=== PATIENT | female | born 1985 | race Caucasian/White ===

== ENCOUNTER 2020-03-27 06:13 | Emergency (ER) | payer SELFPAY ==
[2020-03-27 06:22] VITALS: BP 134/91; PULSE 100; RESP 18; TEMP 36.9; O2SAT 99; BMI 25.7
[2020-03-27 07:26] VITALS: BP 133/60; PULSE 93; RESP 16; O2SAT 97
[2020-03-27 07:42] LABS: Add Urine Microscopic? NO
[2020-03-27 07:43] LABS: Basophils # 0.1 10^3/uL (0.0-0.1); Basophils % 0.6 %; Eosinophils # 0.3 10^3/uL (0.0-0.8); Eosinophils % 2.9 %; Hematocrit 41.4 % (37.0-47.0); Hemoglobin 13.7 g/dL (11.5-15.3); Lymphocytes # 3.1 10^3/uL (0.8-4.8); Lymphocytes % 35.1 %; Mean Corpuscular HGB Conc 33.1 g/dL (30.0-36.0); Mean Corpuscular Hemoglobin 28.5 pg (28.0-34.0); Mean Corpuscular Volume 86.3 fL (81-99); Mean Platelet Volume 9.4 fL (7.4-10.4); Monocytes # 0.7 10^3/uL (0.2-0.9); Monocytes % 7.9 %; Neutrophils # 4.65 10^3/uL (1.8-7.7); Neutrophils % 53.4 %; Nucleated Red Blood Cells % 0 %; Platelet Count 287 10^3/cmm (130-400); White Blood Count 8.7 10^3/uL (4.0-10.0)
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
[2020-03-27 07:47] LABS: Bilirubin Urine Neg (Negative); Blood Urine Neg (Negative); Glucose Urine UA Norm (Normal); Ketones Urine Negative (Negative); Leukocyte Esterase Urine Negative (Negative); Nitrate Urine Negative (Negative); Protein Urine Neg (Negative); Urine Appearance Clear (CLEAR); Urine Color Yellow (Yellow); Urobilinogen Urine Norm (Negative); pH Urine 7 (5-7)
[2020-03-27 07:48] LABS: HCG Qualitative Urine. Negative (Negative)
[2020-03-27 07:57] LABS: Alanine Aminotransferase 23 U/L (0-33); Albumin Level 4.2 g/dL (3.5-5.2); Alkaline Phosphatase 75 IU/L (35-105); Anion Gap 13.2 (5-19); Aspartate Amino Transferase 21 U/L (0-32); Blood Urea Nitrogen 8 mg/dL (6-20); Calcium 9.4 mg/dL (8.5-10.5); Carbon Dioxide 25 mmol/L (22-29); Chloride 100 mmol/L (98-107); Creatinine Clr Calc Pharmacy 186.0478; Globulin 3.4 g/dL (1.3-4.6); Glomerular Filtration Rate 181.6 mL/min (90-130); Glucose 88 mg/dL (65-115); Osmolality Calculated 278 mOsm/kg (285-295); Potassium 3.2 mmol/L (3.5-5.1); Sodium 135 mmol/L (136-145); Total Bilirubin 0.4 mg/dL (0.15-1.2); Total Protein 7.6 g/dL (6.6-8.7)
[2020-03-27 08:00] LABS: Acetaminophen < 5.0 ug/mL (10-30); Salicylate < 0.3 mg/dL (3-10)
[2020-03-27 09:02] VITALS: BP 116/75; PULSE 90; RESP 16; O2SAT 94
[2020-03-27 09:14] VITALS: BP 118/75; PULSE 99; O2SAT 98
== END 2020-03-27 09:20 | disposition home or self-care (01) ==
PROVIDERS: Emergency Provider Family Medicine; PCP Family Medicine
DX: F32.9 Major depressive disorder, single episode, unspecified (principal)
CPT/HCPCS: 80053; 80307; 81003; 81025; 85025; 99283

== ENCOUNTER 2023-10-01 04:29 | Emergency (ER) | payer OTHER, SELFPAY ==
[2023-10-01 04:45] VITALS: BP 136/85; PULSE 99; RESP 18; TEMP 37.1; O2SAT 99; BMI 25.7
--- NOTE | 2023-10-01 04:50 | XRR_ITS ---
PROCEDURE INFORMATION: Exam: XR Chest Exam date and time: 10/01/2023 4:55 AM Age: 38 years old Clinical indication: Shortness of breath; Patient HX: C/O SOB TECHNIQUE: Imaging protocol: Radiologic exam of the chest. Views: 1 view. COMPARISON: CR XR chest 1V [id number] 01/17/2019 6:06 AM FINDINGS: Lungs: Unremarkable. No consolidation. Pleural spaces: Unremarkable. No pleural effusion. No pneumothorax. Heart/Mediastinum: Unremarkable. No cardiomegaly. Bones/joints: Unremarkable. XR/XR chest 1V portable [id number] IMPRESSION: No acute findings.
--- NOTE | 2023-10-01 04:51 | ECG_ITS ---
[facility] Test Date: 2023-10-01 Pat Name: Erendira Lindo Department: Room: Gender: Female [employer] Driver: : [id number] Requested By: Jeimy Jones Order Number: [id number] Trip MD: DANISH SANCHEZ Measurements Intervals [place] Rate: 96 P: 60 HI: 132 QRS: 32 QRSD: 114 T: 44 QT: 367 QTc: 465 Interpretive Statements SINUS RHYTHM INCOMPLETE RIGHT BUNDLE BRANCH BLOCK [90+ ms QRS DURATION, TERMINAL R IN V1/V2, 40+ ms S IN I/aVL/V4/V5/V6] Compared to ECG 01/17/2019 06:18:09 No significant changes Electronically Signed On 10-01-2023 20:23:17 CDT by DANISH SANCHEZ [id number] f
[2023-10-01 05:00] VITALS: BP 136/85; PULSE 102; RESP 16; O2SAT 97
--- NOTE | 2023-10-01 05:03 | ED_ITS ---
Documented by User: Jeimy Maza MD 10/01/23 05:18 HPI - SOB/Dyspnea 2 General: Chief Complaint: Shortness of Breath/Dyspnea Stated Complaint: SOB Time Seen by Provider: 10/01/23 04:32 History of Present Illness: HPI Narrative: 38-year-old female who presents emergenc y room with shortness of breath. She says she was exposed to COVID 4 days ago and since then she has had dizziness. She has been lightheaded. She is felt short of breath. She has had some cough. She has had nausea and vomiting and diarrhea. No known fevers. No abdominal pain. No chest pain. Related Data Previous Rx's Medication Instructions Recorded amoxicillin 875 mg tablet 875 mg PO BID 10 days #20 tabs 11/10/20 Allergies Allergy/AdvReac Type Severity Reaction Status Date / Time Iodinated Contrast Media Allergy ALGY-Swell Verified 11/10/20 16:09 Lip/Tongue/Throat Sulfa (Sulfonamide Allergy ADR-Swelling Verified 11/10/20 16:09 Antibiotics) of the Eye Review of Systems 2 Narrative: Constitutional symptoms: Negative except as documented in HPI. Skin symptoms: Negative except as documented in HPI. Eye symptoms: Negative except as documented in HPI. ENMT symptoms: Negative except as documented in HPI. Respiratory symptoms: Negative except as documented in HPI. Cardiovascular symptoms: Negative except as documented in HPI. Gastrointestinal symptoms: Negative except as documented in HPI. Genitourinary symptoms: Negative except as documented in HPI. Musculoskeletal symptoms: Negative except as documented in HPI. Neurologic symptoms: Negative except as documented in HPI. Psychiatric symptoms: Negative except as documented in HPI. Endocrine symptoms: Negative except as documented in HPI. [facility] PFSH: Medical History (Updated 10/01/23 @ 06:08 by Rajat Brothers MD) Depression Social History Smoking and tobacco/nicotine status: current every day tobacco/nicotine user Physical Exam 2 Narrative: EXAM NARRATIVE: General: Alert, no acute distress. Skin: Warm, dry. Head: Normocephalic, atraumatic. Neck: Supple, trachea midline. Eye: Extraocular movements are intact. Ears, nose, mouth and throat: mucosa moist. Cardiovascular: Regular, Normal peripheral perfusion. Respiratory: Lungs are clear to auscultation, respirations are non-labored, breath sounds are equal, Symmetrical chest wall expansion. Gastrointestinal: Soft, Nontender, Non distended Musculoskeletal: Normal ROM, no deformity. Neurological: Alert and oriented, No focal neurological deficit observed. Psychiatric: Cooperative, appropriate mood & affect. Course 2 Vital Signs: Vital signs: Vital Signs Temperature 98.8 F 10/01/23 04:45 Pulse Rate 102 H 10/01/23 05:00 Respiratory Rate 16 10/01/23 05:00 Blood Pressure 136/85 10/01/23 05:00 Pulse Oximetry 97 10/01/23 05:00 Oxygen Delivery Me thod Room Air 10/01/23 05:00 MDM - SOB/Dyspnea Medical Decision Making Differential diagnosis for patient with shortness of breath includes but is not limited to and based on the above HPI, review of systems and physical exam: Pneumonia. Bronchitis. Asthma or COPD with acute exacerbation. Acute coronary syndrome / CA. Pulmonary embolism. Anxiety. Congestive heart failure. Viral infections including influenza and Covid-19. Atrial fibrillation. Anxiety. Pleural effusion. Pneumothorax. Workup: Lab work, chest X-ray and EKG ordered to evaluate, rule in and rule out above pathologies Chest x-ray: No acute process. No infiltrate. No pneumothorax. This was reviewed and interpreted by myself the ER physician. EKG: Time 4:51 AM. Rate 96. Normal sinus rhythm, No ST-T changes, no ectopy, normal CT & QRS intervals, This was reviewed and interpreted by myself the ER physician at 4:53 AM Lab Review: Laboratory results were reviewed and interpreted by myself the emergency room physician. Urinalysis is negative for infection. Slightly concentrated which would indicate some dehydration. Fluids have been ordered. Patient care transitioned to Dr. Brothers at shift change. Lab Data 10/01/23 05:14 10/01/23 05:14 Labs/Radiology: Laboratory Results WBC 10.55 10^3/uL (3.29-11.43) 10/01/23 05:14 RBC 4.92 10^6/uL (3.85-5.65) 10/01/23 05:14 Hgb 14.10 g/dL (11.27-16.99) 10/01/23 05:14 Hct 43.5 % (36-47) 10/01/23 05:14 MCV 88.4 fl (85-98) 10/01/23 05:14 MCH 28.7 pg (27-33) 10/01/23 05:14 MCHC 32.4 g/dL (30-55) 10/01/23 05:14 RDW 13.8 % (12.1-15.1) 10/01/23 05:14 Plt Count 330 10^3/cmm (157-399) 10/01/23 05:14 MPV 8.6 fL (7.4-10.4) 10/01/23 05:14 Neut % (Auto) 58.5 % 10/01/23 05:14 Lymph % (Auto) 29.9 % 10/01/23 05:14 Sac % (Auto) 7.5 % 10/01/23 05:14 Eos % (Auto) 3.1 % 10/01/23 05:14 Baso % (Auto) 0.7 % 10/01/23 05:14 Neut # (Auto) 6.18 10^3/uL (1.8-7.7) 10/01/23 05:14 Lymph # (Auto) 3.2 10^3/uL (0.8-4.8) 10/01/23 05:14 Sac # (Auto) 0.8 10^3/uL (0.2-0.9) 10/01/23 05:14 Eos # (Auto) 0.3 10^3/uL (0.0-0.8) 10/01/23 05:14 Baso # (Auto) 0.1 10^3/uL (0.0-0.1) 10/01/23 05:14 Nucleated RBC % (auto) 0 % 10/01/23 05:14 Nucleated RBCs # 0.0 /100WBC 10/01/23 05:14 Sodium 138 mmol/L (136-145) 10/01/23 05:14 Potassium 3.5 mmol/L (3.5-5.1) 10/01/23 05:14 Chloride 99 mmol/L (98-107) 10/01/23 05:14 Carbon Dioxide 26 mmol/L (22-29) 10/01/23 05:14 Anion Gap 16.5 (5-19) 10/01/23 05:14 BUN 15 mg/dL (6-20) 10/01/23 05:14 Creatinine 0.5 mg/dL (0.5-0.9) 10/01/23 05:14 GFR Calculation 137.4 mL/min (90-130) H 10/01/23 05:14 Glucose 99 mg/dL (65-115) 10/01/23 05:14 Calculated Osmolality 287 mOsm/kg (285-295) 10/01/23 05:14 Lactic Acid 1.2 mmol/L (0.5-2.2) 10/01/23 05:14 Calcium 9.2 mg/dL (8.5-10.5) 10/01/23 05:14 Total Bilirubin 0.3 mg/dL (0.15-1.2) 10/01/23 05:14 AST 25 U/L (0-32) 10/01/23 05:14 ALT 19 U/L (0-33) 10/01/23 05:14 Alkaline Phosphatase 83 U/L (35-105) 10/01/23 05:14 C-Reactive Protein 6.3 mg/L (0.0-4.9) H 10/01/23 05:14 Total Protein 7.7 g/dL (6.6-8.7) 10/01/23 05:14 Albumin 4.3 g/dL (3.5-5.2) 10/01/23 05:14 Globulin 3.4 g/dL (1.3-4.6) 10/01/23 05:14 Lipase 25 U/L (13-60) 10/01/23 05:14 Urine Color Yellow (Yellow) 10/01/23 04:55 Urine Appearance Clear (CLEAR) 10/01/23 04:55 Urine pH 7.0 (5-7) 10/01/23 04:55 Ur Specific [place] 1.018 (1.005-1.030) 10/01/23 04:55 Urine Protein Negative (Negative) 10/01/23 04:55 Urine Glucose (UA) Negative (Normal) 10/01/23 04:55 Urine Ketones Negative (Negative) 10/01/23 04:55 Urine Blood Negative (Negative) 10/01/23 04:55 Urine Nitrate Negative (Negative) 10/01/23 04:55 Urine Bilirubin Negative (Negative) 10/01/23 04:55 Urine Urobilinogen 1.0 mg/dL (Negative) 10/01/23 04:55 Ur Leukocyte Esterase Negative (Negative) 10/01/23 04:55 Urine RBC 0-2 /hpf (0-2) 10/01/23 04:55 Urine WBC 0-5 /hpf (0-5) 10/01/23 04:55 Ur Squamous Epith Cells 0-5 /hpf (0-5) 10/01/23 04:55 Amorphous Sediment Not Reportable 10/01/23 04:55 Urine Bacteria None seen /hpf (NONE) 10/01/23 04:55 Hyaline Casts 0.40 /lpf 10/01/23 04:55 Urine Opiates Screen Positive ng/mL (Negative) H 10/01/23 04:55 Ur Barbiturates Screen Negative ng/mL (Negative) 10/01/23 04:55 Ur Phencyclidine Scrn Negative ng/mL (Negative) 10/01/23 04:55 Ur Amphetamines Screen Positive ng/mL (Negative) H 10/01/23 04:55 U Benzodiazepines Scrn Negative ng/mL (Negative) 10/01/23 04:55 Urine Cocaine Screen Negative ng/mL (Negative) 10/01/23 04:55 U Marijuana (THC) Screen Negative ng/mL (Negative) 10/01/23 04:55 SARS-CoV-2 Ag (Rapid) negative (Negative) 10/01/23 04:55 Discharge Plan Discharge Patient Disposition: Home Clinical Impression: Upper respiratory infection Condition: Stable Prescriptions: No Action amoxicillin 875 mg tablet 875 mg PO BID 10 Days Qty: 20 0RF Discharge Orders: Discharge ED (Routine); Ordered 10/01/23 Ordered By: Rajat Brothers Discharge Diet: Advance as tolerated Discharge Activity: Resume usual activity Patient Instructions: Upper Respiratory Infection (ED) Coding Level of Care Code ED Financial Aid Officer for Chg Fwd Documented by User: Rajat Brothers MD 10/01/23 06:09 HPI - SOB/Dyspnea 2 General: Chief Complaint: Shortness of Breath/Dyspnea Stated Complaint: SOB Time Seen by Provider: 10/01/23 04:32 Related Data Previous Rx's Medication Instructions Recorded amoxicillin 875 mg tablet 875 mg PO BID 10 days #20 tabs 11/10/20 Allergies Allergy/AdvReac Type Severity Reaction Status Date / Time Iodinated Contrast Media Allergy ALGY-Swell Verified 11/10/20 16:09 Lip/Tongue/Throat Sulfa (Sulfonamide Allergy ADR-Swelling Verified 11/10/20 16:09 Antibiotics) of the Eye [facility] ED 2 [facility]: Medical History (Updated 10/01/23 @ 06:08 by Rajat Brothers MD) Depression Social History Smoking and tobacco/nicotine status: current every day tobacco/nicotine user Course 2 Vital Signs: Vital signs: Vital Signs Temperature 98.8 F 10/01/23 04:45 Pulse Rate 102 H 10/01/23 05:00 Respiratory Rate 16 10/01/23 05:00 Blood Pressure 136/85 10/01/23 05:00 Pulse Oximetry 97 10/01/23 05:00 Oxygen Delivery Me thod Room Air 10/01/23 05:00 MDM - SOB/Dyspnea Medical Decision Making Differential diagnosis for patient with shortness of breath includes but is not limited to and based on the above HPI, review of systems and physical exam: Pneumonia. Bronchitis. Asthma or COPD with acute exacerbation. Acute coronary syndrome / CA. Pulmonary embolism. Anxiety. Congestive heart failure. Viral infections including influenza and Covid-19. Atrial fibrillation. Anxiety. Pleural effusion. Pneumothorax. Workup: Lab work, chest X-ray and EKG ordered to evaluate, rule in and rule out above pathologies Chest x-ray: No acute process. No infiltrate. No pneumothorax. This was reviewed and interpreted by myself the ER physician. EKG: Time 4:51 AM. Rate 96. Normal sinus rhythm, No ST-T changes, no ectopy, normal CT & QRS intervals, This was reviewed and interpreted by myself the ER physician at 4:53 AM Lab Review: Laboratory results were reviewed and interpreted by myself the emergency room physician. Urinalysis is negative for infection. Slightly concentrated which would indicate some dehydration. Fluids have been ordered. Patient care transitioned to Dr. Brothers at shift change. Patient presents here with cough congestion some dyspnea she likely has a viral URI she is well- appearing here no pneumonia COVID was negative she is stable for discharge she is follow-up with PCP return for worsening Medical Records I reviewed the patient's medical records. Lab Data I reviewed the patient's lab results. 10/01/23 05:14 10/01/23 05:14 Labs/Radiology: Laboratory Results WBC 10.55 10^3/uL (3.29-11.43) 10/01/23 05:14 RBC 4.92 10^6/uL (3.85-5.65) 10/01/23 05:14 Hgb 14.10 g/dL (11.27-16.99) 10/01/23 05:14 Hct 43.5 % (36-47) 10/01/23 05:14 MCV 88.4 fl (85-98) 10/01/23 05:14 MCH 28.7 pg (27-33) 10/01/23 05:14 MCHC 32.4 g/dL (30-55) 10/01/23 05:14 RDW 13.8 % (12.1-15.1) 10/01/23 05:14 Plt Count 330 10^3/cmm (157-399) 10/01/23 05:14 MPV 8.6 fL (7.4-10.4) 10/01/23 05:14 Neut % (Auto) 58.5 % 10/01/23 05:14 Lymph % (Auto) 29.9 % 10/01/23 05:14 Sac % (Auto) 7.5 % 10/01/23 05:14 Eos % (Auto) 3.1 % 10/01/23 05:14 Baso % (Auto) 0.7 % 10/01/23 05:14 Neut # (Auto) 6.18 10^3/uL (1.8-7.7) 10/01/23 05:14 Lymph # (Auto) 3.2 10^3/uL (0.8-4.8) 10/01/23 05:14 Sac # (Auto) 0.8 10^3/uL (0.2-0.9) 10/01/23 05:14 Eos # (Auto) 0.3 10^3/uL (0.0-0.8) 10/01/23 05:14 Baso # (Auto) 0.1 10^3/uL (0.0-0.1) 10/01/23 05:14 Nucleated RBC % (auto) 0 % 10/01/23 05:14 Nucleated RBCs # 0.0 /100WBC 10/01/23 05:14 Sodium 138 mmol/L (136-145) 10/01/23 05:14 Potassium 3.5 mmol/L (3.5-5.1) 10/01/23 05:14 Chloride 99 mmol/L (98-107) 10/01/23 05:14 Carbon Dioxide 26 mmol/L (22-29) 10/01/23 05:14 Anion Gap 16.5 (5-19) 10/01/23 05:14 BUN 15 mg/dL (6-20) 10/01/23 05:14 Creatinine 0.5 mg/dL (0.5-0.9) 10/01/23 05:14 GFR Calculation 137.4 mL/min (90-130) H 10/01/23 05:14 Glucose 99 mg/dL (65-115) 10/01/23 05:14 Calculated Osmolality 287 mOsm/kg (285-295) 10/01/23 05:14 Lactic Acid 1.2 mmol/L (0.5-2.2) 10/01/23 05:14 Calcium 9.2 mg/dL (8.5-10.5) 10/01/23 05:14 Total Bilirubin 0.3 mg/dL (0.15-1.2) 10/01/23 05:14 AST 25 U/L (0-32) 10/01/23 05:14 ALT 19 U/L (0-33) 10/01/23 05:14 Alkaline Phosphatase 83 U/L (35-105) 10/01/23 05:14 C-Reactive Protein 6.3 mg/L (0.0-4.9) H 10/01/23 05:14 Total Protein 7.7 g/dL (6.6-8.7) 10/01/23 05:14 Albumin 4.3 g/dL (3.5-5.2) 10/01/23 05:14 Globulin 3.4 g/dL (1.3-4.6) 10/01/23 05:14 Lipase 25 U/L (13-60) 10/01/23 05:14 Urine Color Yellow (Yellow) 10/01/23 04:55 Urine Appearance Clear (CLEAR) 10/01/23 04:55 Urine pH 7.0 (5-7) 10/01/23 04:55 Ur Specific [place] 1.018 (1.005-1.030) 10/01/23 04:55 Urine Protein Negative (Negative) 10/01/23 04:55 Urine Glucose (UA) Negative (Normal) 10/01/23 04:55 Urine Ketones Negative (Negative) 10/01/23 04:55 Urine Blood Negative (Negative) 10/01/23 04:55 Urine Nitrate Negative (Negative) 10/01/23 04:55 Urine Bilirubin Negative (Negative) 10/01/23 04:55 Urine Urobilinogen 1.0 mg/dL (Negative) 10/01/23 04:55 Ur Leukocyte Esterase Negative (Negative) 10/01/23 04:55 Urine RBC 0-2 /hpf (0-2) 10/01/23 04:55 Urine WBC 0-5 /hpf (0-5) 10/01/23 04:55 Ur Squamous Epith Cells 0-5 /hpf (0-5) 10/01/23 04:55 Amorphous Sediment Not Reportable 10/01/23 04:55 Urine Bacteria None seen /hpf (NONE) 10/01/23 04:55 Hyaline Casts 0.40 /lpf 10/01/23 04:55 Urine Opiates Screen Positive ng/mL (Negative) H 10/01/23 04:55 Ur Barbiturates Screen Negative ng/mL (Negative) 10/01/23 04:55 Ur Phencyclidine Scrn Negative ng/mL (Negative) 10/01/23 04:55 Ur Amphetamines Screen Positive ng/mL (Negative) H 10/01/23 04:55 U Benzodiazepines Scrn Negative ng/mL (Negative) 10/01/23 04:55 Urine Cocaine Screen Negative ng/mL (Negative) 10/01/23 04:55 U Marijuana (THC) Screen Negative ng/mL (Negative) 10/01/23 04:55 SARS-CoV-2 Ag (Rapid) negative (Negative) 10/01/23 04:55 XR interpretation done by ED provider, pending radiology final review ED provider radiology interpretation(s): cxr: no acute abnorality Discharge Plan Discharge Patient Disposition: Home Clinical Impression: Upper respiratory infection Condition: Stable Prescriptions: No Action amoxicillin 875 mg tablet 875 mg PO BID 10 Days Qty: 20 0RF Discharge Orders: Discharge ED (Routine); Ordered 10/01/23 Ordered By: Rajat Brothers Discharge Diet: Advance as tolerated Discharge Activity: Resume usual activity Patient Instructions: Upper Respiratory Infection (ED) Coding Level of Care Code ED Financial Aid Officer for Markos Rae
[2023-10-01 05:10] LABS: Bilirubin Urine Negative (Negative); Blood Urine Negative (Negative); Glucose Urine UA Negative (Normal); Ketones Urine Negative (Negative); Leukocyte Esterase Urine Negative (Negative); Nitrate Urine Negative (Negative); Protein Urine Negative (Negative); Specific Gravity, Urine 1.018 (1.005-1.030); Urine Appearance Clear (CLEAR); Urine Color Yellow (Yellow)
[2023-10-01 05:15] LABS: Bacteria Urine None Seen /hpf; RBC Urine 0-2 /hpf (0-2); Squamous Epithelial Cell Urine 0-5 /hpf (0-5); WBC Urine 0-5 /hpf (0-5)
[2023-10-01] MEDS: sodium chloride 0.9% 1,000 ML 999 ML IV (05:15)
[2023-10-01] MEDS: ondansetron 2 mg/ML SDV 2 mL 8 MG IVP (05:16)
[2023-10-01 05:24] LABS: SARS Covid-2 Antigen negative (Negative)
[2023-10-01 05:25] LABS: Basophils # 0.1 10^3/uL (0.0-0.1); Basophils % 0.7 %; Eosinophils # 0.3 10^3/uL (0.0-0.8); Eosinophils % 3.1 %; Hematocrit 43.5 % (36-47); Lymphocytes # 3.2 10^3/uL (0.8-4.8); Lymphocytes % 29.9 %; Mean Corpuscular HGB Conc 32.4 g/dL (30-55); Mean Corpuscular Hemoglobin 28.7 pg (27-33); Mean Corpuscular Volume 88.4 fl (85-98); Mean Platelet Volume 8.6 fL (7.4-10.4); Monocytes # 0.8 10^3/uL (0.2-0.9); Monocytes % 7.5 %; Neutrophils # 6.18 10^3/uL (1.8-7.7); Neutrophils % 58.5 %; Nucleated Red Blood Cells % 0 %; Platelet Count 330 10^3/cmm (157-399); Red Blood Count 4.92 10^6/uL (3.85-5.65); Red Cell Distribution Width 13.8 % (12.1-15.1); White Blood Count 10.55 10^3/uL (3.29-11.43)
[2023-10-01 05:41] LABS: Amphetamines Screen Urine Positive (Negative); Barbiturates Screen Urine Negative (Negative); Benzodiazepines Screen Urine Negative (Negative); Cocaine Screen Urine Negative (Negative); Opiate Screen Urine Positive (Negative); PCP Screen Urine Negative (Negative); THC Screen Urine Negative (Negative)
[2023-10-01 05:41] LABS: Alanine Aminotransferase 19 U/L (0-33); Albumin Level 4.3 g/dL (3.5-5.2); Alkaline Phosphatase 83 U/L (35-105); Anion Gap 16.5 (5-19); Aspartate Amino Transferase 25 U/L (0-32); Blood Urea Nitrogen 15 mg/dL (6-20); C Reactive Protein 6.3 mg/L (0.0-4.9); Calcium 9.2 mg/dL (8.5-10.5); Carbon Dioxide 26 mmol/L (22-29); Chloride 99 mmol/L (98-107); Creatinine Clr Calc Pharmacy 143.1682; Globulin 3.4 g/dL (1.3-4.6); Glomerular Filtration Rate 137.4 mL/min (90-130); Glucose 99 mg/dL (65-115); Lactic Sepsis W/Reflex 1.2 mmol/L (0.5-2.2); Lipase 25 U/L (13-60); Osmolality Calculated 287 mOsm/kg (285-295); Potassium 3.5 mmol/L (3.5-5.1); Sodium 138 mmol/L (136-145); Total Bilirubin 0.3 mg/dL (0.15-1.2); Total Protein 7.7 g/dL (6.6-8.7)
[2023-10-01] MEDS: dexamethasone 10 mg/mL INJ IVP (06:17)
[2023-10-01 06:30] VITALS: BP 80/68; PULSE 98; RESP 16; O2SAT 97
== END 2023-10-01 06:31 | disposition home or self-care (01) ==
PROVIDERS: Emergency Medicine; Emergency Provider Emergency Medicine
DX: J06.9 Acute upper respiratory infection, unspecified (principal); Z72.0 Tobacco use
CPT/HCPCS: 71045; 80053; 80306; 81001; 83605; 83690; 85025; 86140; 87426; 93005; 96361; 96374; 96375; 99285; J1100; J2405; J7030